=== PATIENT | male | born 1960 ===

== ENCOUNTER 2021-12-23 11:36 | Emergency (ER) | payer SELFPAY ==
[2021-12-23 11:53] VITALS: BP 158/84
--- NOTE | 2021-12-23 13:11 | Emergency Department Report ---
Minor Respiratory - HPI Chief Complaint: Dyspnea/Respdistress Stated Complaint: JUDY WHILE LAYING FLAY Duration: Today Pain Location: Chest Severity: mild Minor Respiratory: Yes Able to Tolerate Fluids, Yes Cough, Yes Shortness of Breath, No Rhinorrhea, No Sore Throat, No Ear Pain, No Sick Contacts, No Hemoptysis, No Chest Pain, No Fever Other History: PT ARRIVING FROM HOME FOR SOB. REPORTS ONLY SOB WHILE LYING DOWN. NO RESP DISTRESS NOTED. 95% RA. ED Review of Systems ROS: Stated complaint: JUDY WHILE LAYING FLAY Other details as noted in HPI ED Past Medical Hx - Past Medical History Previous Medical History?: Yes Hx Hypertension: Yes - Family History Family history: no significant - Social History Smoking Status: Current Every Day Smoker Substance Use Type: Alcohol, Marijuana Minor Respiratory Exam - Exam General: Vital signs noted. No distress. Alert and acting appropriately. HEENT: Yes Moist Mucous Membranes, No Pharyngeal Erythema, No Pharyngeal Exudates, No Rhinorrhea, No Conjuctival Injection, No Frontal Tenderness, No Maxillary Tenderness Ear: Neither TM Bulge, Neither TM Erythema, Neither EAC Pain, Neither EAC Discharge Neck: Yes Supple, No Adenopathy Lungs: Yes Good Air Exchange, No Wheezes, No Ronchi, No Stridor, No Cough, No Labored Respirations, No Retractions, No Use of Accessory Muscles, No Other Abnormal Lung Sounds Heart: Yes Regular, No Murmur Abdomen: Yes Normal Bowel Sounds, No Tenderness, No Peritoneal Signs Skin: No Rash, No Edema Neurologic: Alert and oriented, no deficits. Musculoskeletal: Unremarkable. ED Course Vital Signs 12/23/21 11:51 Pulse Rate 52 L Blood Pressure 158/84 [Left] O2 Sat by Pulse 95 Oximetry - Reevaluation(s) Reevaluation #1: 12/23/21 13:33 rx norvasc lisinopril albuterol hctz flunisolide asa motrin imetrix Critical care attestation.: If time is entered above; I have spent that time in minutes in the direct care of this critically ill patient, excluding procedure time. ED Disposition Clinical Impression: SOB (shortness of breath) Disposition: 30 STILL A PATIENT Is pt being admited?: No Does the pt Need Aspirin: No Condition: Stable Time of Disposition: 13:36
--- NOTE | 2021-12-25 09:44 | Electrocardiograph Report ---
[facility] Test Date: 2021-12-23 Test Time: 13:41:59 Pat Name: BISMARK GILES Department: Room: Gender: M Spa Receptionist: ENMANUEL : 1960 Requested By: CHRISTOPH DILL Order Number: [id number] Reading MD: Haseeb Guaman Measurements Intervals [place] Rate: 50 P: 9 HI: 216 QRS: 206 QRSD: 152 T: -65 QT: 442 QTc: 401 Interpretive Statements Sinus rhythm RBBB Borderline prolonged HI interval Probable left atrial enlargement Consider left ventricular hypertrophy Abnormal T, consider ischemia, anterior leads No previous ECG available for comparison Electronically Signed On 12-25-2021 9:44:16 EDT by Haseeb Guaman
== END 2021-12-25 14:32 | disposition left against medical advice (07) ==
LOC: ED 11:36
DX: R06.02 Shortness of breath (principal); R05.9 Cough, unspecified; I10 Essential (primary) hypertension; F17.200 Nicotine dependence, unspecified, uncomplicated; Z72.89 Other problems related to lifestyle
CPT/HCPCS: 93005; 99283